=== PATIENT | male | born 1955 | race Caucasian/White ===

== ENCOUNTER 2023-03-07 08:43 | Outpatient (AMB) | payer OTHER, SELFPAY ==
--- NOTE | 2023-03-07 08:51 | MHC.OFFWIV ---
Intake Vital Signs 03/07/23 08:53 Height 5 ft 8 in Weight 213 lb BMI 32.4 BP 118/60 Blood Pressure Location Lt brachial Position Sitting Pulse 62 Pulse Source Pulse Oximeter Temp 97.6 F Temp Source Temporal Artery Scan Pulse Oximetry (%) 91 L Oxygen Delivery Method Nasal Cannula Intake Visit Reasons: KNOBBER, cough ([phone]) Intake Note: pt is here today for cough started 3 weeks ago Patient Tobacco Use Status: Never used Tobacco Allergies From Wellbutrin Allergy (Unknown, Uncoded 11/18/19 15:23) SWELLING/HIVES Do you need a note to return to daycare/school/sports/work: Yes HPI KNOBBER, cough ([phone]) HPI Details This is a with a COPD exacerbation. He reports a persistent, productive cough with yellow/green sputum for the last 3 weeks. He typically wears his oxygen, 2 L at night, however has also been wearing it during the day at 1 L for the last several days. SaO2 is 91% right now, which patient reports is his baseline. He denies any known exposure to sick contacts, however illness started following returning from a cruise. Denies any fever or chills. Has been using Trelegy and albuterol inhalers at home p.r.n.. [facility]LY [facility] Social History Patient Tobacco Use Status: Never used Tobacco Review of Systems Const All systems reviewed & are unremarkable except as noted in HPI and below Physical Exam Vital Signs: Last Vital Signs Temp 97.6 F 03/07/23 08:53 Pulse 62 03/07/23 08:53 BP 118/60 03/07/23 08:53 Pulse Ox 88 L 03/07/23 08:53 Oxygen Delivery Method Room Air 03/07/23 08:53 BMI result Body Mass Index 32.4 Const General: cooperative and no acute distress HEENT Head: Yes normal to inspection Ears: hearing grossly normal bilaterally Throat: Yes posterior oropharynx normal Neck Neck: Yes no lymphadenopathy Resp Effort & Inspection: normal respiratory effort, able to speak in complete sentences and Actively coughing Quality: productive Auscultation: wheezes scattered wheezes Cardio Palpation: normal PMI Rate: regular rate Rhythm: regular rhythm Skin General skin exam: no rashes or lesions noted Extrem General: Yes capillary refill normal and Yes no clubbing, cyanosis or edema Psych Appearance: grossly normal Mental Status: mental status grossly normal Speech and movement: Normal speech and movement present Assessment & Plan Assessment & Plan (1) COPD exacerbation: Code(s): J44.1 - Chronic obstructive pulmonary disease with (acute) exacerbation Plan: Will start patient on course of abx, prednisone, and also benzonatate for his cough. He can continue to titrate his home O2 and use inhalers as needed. His SaO2 is currently 91%R which he reports is his baseline. We reviewed indications, use, possible s/e of medications. If he does not improve with treatment he should return to the clinic for further evaluation. If he develops worsening shortness of breath, fever, chills, or baseline SaO2 is not sustained, he should go to the ED for evaluation. He and present at visit verbalize understanding and agree to plan. Medications: New amoxicillin-pot clavulanate 875-125 mg 1 tab PO BID 7 days 14 tabs 0RF J44.1 - Chronic obstructive pulmonary disease with (acute) exacerbation prednisone 20 mg PO BID 5 days 10 tabs 0RF J44.1 - Chronic obstructive pulmonary disease with (acute) exacerbation benzonatate 100 mg PO BID 7 days PRN 14 caps 0RF cough R05.9 - Cough, unspecified Coding Level of Care Code Est Pt Level 3 (21163) Diagnoses COPD exacerbation J44.1
[2023-03-07 08:53] VITALS: BP 118/60; PULSE 62; TEMP 36.4; O2SAT 91; BMI 32.4
== END 2023-03-07 09:57 | disposition home or self-care (01) ==
PROVIDERS: PCP Internal Medicine; Visit Provider Nurse Practitioner Family
DX: J44.1 Chronic obstructive pulmonary disease with (acute) exacerbation (principal)
CPT/HCPCS: 99213